=== PATIENT | male | born 1955 | race Caucasian/White ===

== ENCOUNTER 2016-10-26 06:40 | Emergency (ER) | payer OTHER ==
[~2016-10-26] VITALS: Ht 177.8 cm; Wt 82.0 kg
[2016-10-26] MEDS ORDERED: RANITIDINE HCL150 MG PO (07:37)
[2016-10-26] MEDS ORDERED: LISINOPRIL10 MG PO (07:37)
[2016-10-26] MEDS ORDERED: BACLOFEN10 MG PO (07:38)
[2016-10-26] MEDS ORDERED: AMLODIPINE BESY10 MG PO (07:38)
[2016-10-26 07:45] VITALS: BP 143/90
== END 2016-10-26 07:46 | disposition home or self-care (01) ==
LOC: EME 06:40
DX: R04.0 Epistaxis (principal); I10 Essential (primary) hypertension; K21.9 Gastro-esophageal reflux disease without esophagitis; F17.200 Nicotine dependence, unspecified, uncomplicated
CPT/HCPCS: 99281; 99284

== ENCOUNTER 2016-10-29 15:20 | Inpatient (IN) | payer OTHER ==
[2016-10-29] VITALS (7 sets, daily range): BP systolic 102–134; BP diastolic 55–71
[~2016-10-29] VITALS: Ht 177.8 cm; Wt 77.9 kg
[~2016-10-29 15:20] MED LIST: AMLODIPINE BESY10 MG PO; BACLOFEN10 MG PO; LISINOPRIL10 MG PO; RANITIDINE HCL150 MG PO
[2016-10-29 15:59] LABS: BASOPHIL COUNT 0.1 K/uL (0-0.1); EOSINOPHIL (%) 0.4 % (0-5); EOSINOPHIL COUNT 0.1 K/uL (0-0.3); HEMATOCRIT 22.8 % (38.0-50.0); IMMATURE GRANULOCYTE (%) 0.5 % (0.0-0.7); IMMATURE GRANULOCYTE COUNT 0.1 K/uL; INSTRUMENT ABS NEUTROPHIL CT 8.4 K/uL; LYMPHOCYTE COUNT 2.4 K/uL (1.0-2.8); MCH 30.8 PG (29.0-34.0); MCHC 31.6 G/DL (30.0-36.0); MCV 97.4 FL (86-99); MEAN PLAT.VOLUME 10.9 uM^3 (9.0-12.4); MONOCYTE (%) 8.1 % (3-12); NEUTROPHIL (%) 70.6 % (45-76); NEUTROPHIL COUNT 8.4 K/uL (1.8-6.4); PLATELET COUNT 230 K/uL (156-360); RBC DIS.WIDTH-CV 15.2 % (11.8-14.6); RBC DIS.WIDTH-SD 52.6 % (39-53); RED BLOOD COUNT 2.34 M/uL (4.00-5.50); WHITE BLOOD COUNT 11.9 K/uL (4.1-10.2)
[2016-10-29 16:10] LABS: CHLORIDE 107 mEq/L (99-109); POTASSIUM 3.9 mEq/L (3.7-5.4); SODIUM 138 mEq/L (136-147)
[2016-10-29 16:12] LABS: GLUCOSE 132 mg/dL (70-99)
[2016-10-29 16:13] LABS: ANION GAP 10 MEQ/L (2-14)
[2016-10-29 16:15] LABS: GFR ESTIMATE (CALCULATED) > 59 mL/min/
[2016-10-29 16:16] LABS: UREA NITROGEN (BUN) 32 mg/dL (9-23)
[2016-10-29 22:35] LABS: ADD MIUA? NO; BILIRUBIN NEGATIVE; BLOOD NEGATIVE; COLOR YELLOW ((YELLOW)); GLUCOSE (STRIP) 150; KETONES NEGATIVE; LEUKOCYTES NEGATIVE; NITRITE NEGATIVE; PROTEIN (STRIP) NEGATIVE; SPECIFIC GRAVITY 1.019 (1.000-1.030); UCUL ADDED? NO; UROBILINOGEN 0.2 MG/DL (0.2-1.0)
[2016-10-29 22:48] LABS: INTER. NORMALIZED RATIO 1.1; PROTHROMBIN TIME 11.2 (9.2-11.2); PTT 24.8 (25-32)
[2016-10-29 23:00] LABS: IRON 179 MCG/DL (35-150)
[2016-10-29 23:51] LABS: ALKALINE PHOSPHATASE 30 IU/L (3-129); DIRECT BILIRUBIN 0.1 mg/dL (0.0-0.3); TOTAL BILIRUBIN 0.4 MG/DL (0.0-1.0)
[2016-10-30] VITALS (8 sets, daily range): BP systolic 110–126; BP diastolic 56–69
[2016-10-30 07:29] LABS: HEMATOCRIT 24.1 % (38.0-50.0); MCH 30.5 PG (29.0-34.0); MCHC 31.5 G/DL (30.0-36.0); MCV 96.8 FL (86-99); RBC DIS.WIDTH-CV 15.4 % (11.8-14.6); RBC DIS.WIDTH-SD 52.8 % (39-53); RED BLOOD COUNT 2.49 M/uL (4.00-5.50); WHITE BLOOD COUNT 6.2 K/uL (4.1-10.2)
[2016-10-30 07:30] LABS: ANION GAP 5 MEQ/L (2-14); CHLORIDE 112 MEQ/L (99-109); GFR ESTIMATE (CALCULATED) > 59 mL/min/; GLUCOSE 99 mg/dL (70-99); POTASSIUM 4.2 MEQ/L (3.7-5.4); SAMPLE HEMOLYSIS CHECK 0; SAMPLE ICTERIC CHECK 0; SAMPLE LIPEMIA CHECK 0; SODIUM 142 MEQ/L (136-147); UREA NITROGEN (BUN) 23 mg/dL (9-23)
[2016-10-30 07:58] LABS: PLAT.SUFFICIENCY ADEQUATE
[2016-10-30 07:59] LABS: PLATELET COUNT 144 K/uL (156-360)
[2016-10-30 10:42] LABS: HEMATOCRIT 22.6 % (38.0-50.0); MCV 95.8 FL (86-99)
[2016-10-30 14:58] LABS: HEMATOCRIT 22.2 % (38.0-50.0); MCV 95.7 FL (86-99)
[2016-10-31] VITALS (16 sets, daily range): BP systolic 109–140; BP diastolic 60–94
[2016-10-31 00:57] LABS: MCV 95.5 FL (86-99)
[2016-10-31 06:39] LABS: HEMATOCRIT 22.9 % (38.0-50.0); MCV 97.4 FL (86-99)
[2016-10-31 14:38] LABS: HEMATOCRIT 28.9 % (38.0-50.0); MCV 95.4 FL (86-99)
[2016-11-01 03:59] VITALS: BP 110/70
[2016-11-01 06:53] LABS: HEMATOCRIT 29.2 % (38.0-50.0); MCHC 33.2 G/DL (30.0-36.0); MCV 96.4 FL (86-99); MEAN PLAT.VOLUME 10.9 uM^3 (9.0-12.4); PLATELET COUNT 147 K/uL (156-360); RBC DIS.WIDTH-CV 16.3 % (11.8-14.6); RBC DIS.WIDTH-SD 52.1 % (39-53); WHITE BLOOD COUNT 5.9 K/uL (4.1-10.2)
[2016-11-01 06:54] LABS: RED BLOOD COUNT 3.03 M/uL (4.00-5.50)
[2016-11-01 07:25] LABS: ANION GAP 6 MEQ/L (2-14); CHLORIDE 105 MEQ/L (99-109); GFR ESTIMATE (CALCULATED) > 59 mL/min/; GLUCOSE 102 mg/dL (70-99); POTASSIUM 3.8 MEQ/L (3.7-5.4); SAMPLE HEMOLYSIS CHECK 0; SAMPLE ICTERIC CHECK 0; SAMPLE LIPEMIA CHECK 0; SODIUM 140 MEQ/L (136-147); UREA NITROGEN (BUN) 12 mg/dL (9-23)
[2016-11-01 07:52] VITALS: BP 132/72
== END 2016-11-01 14:09 | disposition home or self-care (01) | DRG 982 ==
LOC: EME 15:20 → EDOF 21:12 → 3EAST 21:12
PROVIDERS: Emergency Medicine; Hospitalist; Internal Medicine; Physician Assistant
PROC: 30233N1 Transfusion of Nonautologous Red Blood Cells into Peripheral Vein, Percutaneous Approach (ICD-10-PCS; principal; 2016-10-29)
PROC: 0W3Q0ZZ Control Bleeding in Respiratory Tract, Open Approach (ICD-10-PCS; 2016-10-31)
DX: R04.0 Epistaxis (principal); D64.9 Anemia, unspecified; I95.9 Hypotension, unspecified; K92.2 Gastrointestinal hemorrhage, unspecified; I10 Essential (primary) hypertension; K21.9 Gastro-esophageal reflux disease without esophagitis; F17.210 Nicotine dependence, cigarettes, uncomplicated; R05 Cough; D62 Acute posthemorrhagic anemia; R01.1 Cardiac murmur, unspecified; D72.829 Elevated white blood cell count, unspecified; K57.30 Diverticulosis of large intestine without perforation or abscess without bleeding; K92.1 Melena; N30.90 Cystitis, unspecified without hematuria; I78.1 Nevus, non-neoplastic; Z71.6 Tobacco abuse counseling
CPT/HCPCS: 70486; 74177; 76775; 80048; 80076; 81003; 82607; 82728; 82746; 83540; 84466; 85014; 85018; 85025; 85027; 85610; 85730; 86900; 86901; 86920; 87040; 87077; 87186; 87801; 93005; 93306; 93880; 93975; 99281; 99284; 99285; C9113; J1940; J7030; P9016